=== PATIENT | female | born 1945 | race Caucasian/White ===

== ENCOUNTER 2025-04-18 09:22 | Outpatient (CLI) | payer MEDICARE, OTHER, SELFPAY | END 2025-04-18 09:23 | disposition home or self-care (01) | LOC: NFLDREF 04-20 13:49 | PROVIDERS: Visit Provider Physician Assistant | DX: R30.0 Dysuria (principal); N39.0 Urinary tract infection, site not specified | CPT/HCPCS: 87086 ==